=== PATIENT | male | born 1985 | race Hispanic/Latino ===

== ENCOUNTER 2018-10-21 18:02 | Emergency (ER) | payer OTHER ==
[2018-10-21] MEDS ORDERED: LIDOCAINE HCL 1% 20 ML VIAL ONE (18:41)
== END 2018-10-21 19:11 | disposition home or self-care (01) ==
LOC: EDH 18:02
DX: S63.284A Dislocation of proximal interphalangeal joint of right ring finger, initial encounter (principal); W18.39XA Other fall on same level, initial encounter; Y93.89 Activity, other specified; Y92.098 Other place in other non-institutional residence as the place of occurrence of the external cause; Y99.8 Other external cause status
CPT/HCPCS: 26770; 73130

== ENCOUNTER 2019-04-09 22:16 | Emergency (ER) | payer OTHER ==
[2019-04-09] MEDS ORDERED: IBUPROFEN 400 MG TABLET ONE (23:04)
[2019-04-09] MEDS ORDERED: SILVER SULFADIAZINE CREAM 50 GM TP ONE (23:04)
== END 2019-04-09 23:50 | disposition home or self-care (01) ==
LOC: EDH 22:16
DX: S90.32XA Contusion of left foot, initial encounter (principal); S90.212A Contusion of left great toe with damage to nail, initial encounter; S50.812A Abrasion of left forearm, initial encounter; S50.811A Abrasion of right forearm, initial encounter; V87.8XXA Person injured in other specified noncollision transport accidents involving motor vehicle (traffic), initial encounter; Y93.89 Activity, other specified; Y92.410 Unspecified street and highway as the place of occurrence of the external cause; Y99.8 Other external cause status
CPT/HCPCS: 73630

== ENCOUNTER 2019-09-13 21:11 | Emergency (ER) | payer SELFPAY | END 2019-09-13 21:49 | disposition home or self-care (01) | LOC: EDH 21:11 | DX: J06.9 Acute upper respiratory infection, unspecified (principal) | CPT/HCPCS: 99281 ==

== ENCOUNTER 2021-07-06 21:01 | Emergency (ER) | payer OTHER ==
[~2021-07-06] VITALS: Ht 162.6 cm; Wt 90.7 kg
[2021-07-06 21:04] VITALS: BP 122/78
[2021-07-06] MEDS ORDERED: BUDE180H IH (22:15)
[2021-07-06] MEDS ORDERED: ALBUHFA IH (22:15)
[2021-07-06 22:37] VITALS: BP 132/73
== END 2021-07-06 22:36 | disposition home or self-care (01) ==
LOC: EDH 21:01
DX: U07.1 COVID-19 (principal); B34.9 Viral infection, unspecified; Z79.899 Other long term (current) drug therapy
CPT/HCPCS: 71045; 87635; 99284; C9803

== ENCOUNTER 2025-09-28 17:10 | Emergency (ER) | payer BC, OTHER ==
[~2025-09-28] VITALS: Ht 160 cm; Wt 106.6 kg
[~2025-09-28 17:10] MED LIST: ALBUHFA IH; BUDE180H IH
--- NOTE | 2025-09-28 18:15 | HMCIMG ---
EXAM: CR right foot, 3 View. CLINICAL HISTORY: trauma COMPARISON: None provided. FINDINGS: BONES: No acute fracture or aggressive appearing osseous lesion. JOINTS: The joint spaces appear within normal limits. No dislocation. SOFT TISSUES: The soft tissues are unremarkable. IMPRESSION: 1. No acute findings. /Andrew
[2025-09-28] MEDS ORDERED: CEPH500T PO (18:35)
--- NOTE | 2025-09-28 18:37 | ERN ---
ED Note History of Present Illness Stated Complaint: TOE INJURY Chief Complaint: Toe Pain/Injury Time Seen by MD: 17:14 Time Seen by Midlevel: 17:16 Dictation: 40 y/o male with no past medical history coming in after chain saw accident while he was cutting wood. Laceration to the left 4th toe. Patient states he is up-to-date with his tetanus, received a when he was in senior care two years ago. Allergies: Coded Allergies: No Known Drug Allergies (Unverified Allergy, Unknown, 07/06/21) Home Meds Active Scripts Budesonide (Pulmicort Inhaler) 180 Mcg/Puff Puff, 180 MCG IH BID, #1 INH Prov:SIDDHARTHA WONG 07/06/21 Albuterol Sulfate (Ventolin Hfa/Proventil Hfa/Proair Hfa) 90 Mcg/Puff Puff, 2 PUFF IH Q4H, #1 INH Prov:SIDDHARTHA WONG 07/06/21 Past Medical History Past Medical History: No Pertinent History Surgical History: None Surgical History Other: ABD SX Review of System Dictation Constitutional: Negative for fever,chills, and weight loss Eyes: Negative for injury, pain,redness, and discharge ENT: Negative for injury,pain or swelling Cardiovascular: Negative for chest pain, palpitations, and edema Respiratory: Negative for shortness of breath, cough, and wheezing, Abdomen/GI: Negative for abdominal pain, nausea, vomiting, diarrhea, and constipation Back: Negative for injury and pain : Negative for injury, bleeding and discharge MS/Extremity: Negative for injury and deformity, injury to the left 4th toe Skin: Negative for rash, and discoloration Neuro: Negative for headache, weakness, numbness, tingling, and seizure Psych: Negative for suicide ideation, homicidal ideation, and hallucinations Review of Systems: was completed Initial Vital Sign VS Vital Signs Date Time Temp Pulse Resp B/P (MAP) Pulse Ox O2 Delivery O2 Flow Rate FiO2 09/28/25 17:11 98.1 68 20 133/74 99 Room Air 0 Physical Exam Dictation General: awake, alert, NAD Head/Face: Normocephalic, atraumatic Eyes: PERRL, EOMI, vision at baseline ENT: oral cavity clear, TMs clear, no signs of infection Neck: Trachea midline, supple, no nuchal rigidity Cardiovascular: RRR, normal S1/S2, No MRGs, no JVD Respiratory: CTAB, no respiratory distress, No rales or wheezes Abdomen: Soft, non-tender, non-distended, normal bowel sounds, no guarding or rebound. Skin: Warm, dry, normal turgor, no rash is an irregular laceration noted to the dorsal aspect of the 4th toe, minimal bleeding. Toe is resting and extension compared to adjacent digits. Patient can flex. Sensations intact. No visible tendon in his on exploration. Sensation and cap refill intact. No foreign body or fracture of the x-ray. Wound irrigated and repaired. MS/Extremity: Pulses equal, no cyanosis, neurovascular intact, FROM Neuro: COAx4, GCS 15, strength 5/5, CN 2-12 intact, normal cerebellar exam, normal gait, Psych: Normal behavior, mood, and affect normal Results (Laboratory/Radiology) X-RAY Comment: [address] [address] IMAGING REPORT Signed PATIENT: VINAY JACKSON MR#: [id number] : 1985 SEX: M AGE: 40 LOCATION: [facility] ORDER 15 STATUS: REG ER REPORT#: [id number] SERVICE 14 REASON: trauma ORDERING PHYSICIAN: ALMA LUCAS CNP PROCEDURE: FT 3VW LT - FOOT COMP 3+VWS LT EXAM: CR right foot, 3 View. CLINICAL HISTORY: trauma COMPARISON: None provided. FINDINGS: BONES: No acute fracture or aggressive appearing osseous lesion. JOINTS: The joint spaces appear within normal limits. No dislocation. SOFT TISSUES: The soft tissues are unremarkable. IMPRESSION: 1. No acute findings. /Oden DICTATED BY: ANNY DANIELS MD DATE: 09/28/251913 ELECTRONICALLY SIGNED BY: ANNY DANIELS MD ED Course ED Course Orders Procedure Category Date Status Time Foot Comp 3+Vws Lt RAD 09/28/25 Resulted 17:15 Lidocaine Hcl 1% 20ml PHA 09/28/25 Logged Vial (Lidocaine Hc 17:51 Dermabond (Dermabond) PHA 09/28/25 Logged 18:30 Current Medications Medications (Trade) Dose Ordered Sig/Morris Route PRN Reason Start Time Stop Time Status Last Admin Dose Admin Lidocaine HCl (Lidocaine HCl 1% 20ml Vial) ONCE STAT INJ 09/28/25 17:51 09/28/25 17:52 UNV Octyl Cyanoacrylate (Dermabond) 1 each ONCE TP 09/28/25 18:30 10/28/25 18:29 UNV Vital Signs Date Time Temp Pulse Resp B/P (MAP) Pulse Ox O2 Delivery O2 Flow Rate FiO2 09/28/25 17:11 98.1 68 20 133/74 99 Room Air 0 Medical Decision Making MDM MDM: 40 y/o male with no past medical history coming in after chain saw accident while he was cutting wood. Laceration to the left 4th toe. Patient states he is up-to-date with his tetanus, received a when he was in senior care two years ago. See procedure note for wound repair. Discussed with the patient that he needs to return in 7-10 days to remove the sutures. Follow up with the orthopedic surgery outpatient and return to the hospital if any signs of infection. Differential diagnosis: Tendon involvement, fracture, foreign body Rationale: Tests considered and ordered secondary to shared decision making in clude: Previous outside records reviewed: Old ER visits. Risk of complication and/or morbidity or mortality of patient management: None Medications-Per medication reconciliation Need for hospitalization: Patient does not meet criteria for hospitalization. Need for emergency major/minor surgery: No There are no social concerns with this patient. Prescription drug management Prescriptions will include symptomatic care Patient's prior external medical records from other ER visits were reviewed by me as indicated. Prior testing and results from previous visits were reviewed. Prior tests were taken into account with medical decision making and resource utilization, independent historian/historians were used to obtain complete medical history. I independently interpreted the test that were performed, results were reviewed by me and considered findings on radiology if ordered. Medical management and examination interpretation discussions were had by me with other qualified healthcare professionals as indicated for the patient's care. Procedure Wound Location: lower extremity (Fourth toe) Wound Length (cm): 5 Wound's Depth, Shape: superficial, irregular, flap, contused tissue Wound Explored: no foreign body removed Irrigated w/ Saline (ccs): 20 Betadine Prep?: Yes Anesthesia: 1% Lidocaine Volume Anesthetic (ccs): 4 Wound Debrided: moderate Wound Repaired With: sutures Suture Size/Type: 3:0 Number of Sutures: 6 DX & DISP Disposition: Discharge Departure Impression: Primary Impression: Laceration Condition: Stable Scripts Cephalexin (Cephalexin) 500 Mg Tablet 1 TAB PO BID for 7 Days, #30 TAB 0 Refills Prov: ALMA LUCAS CNP 09/28/25 Additional Instructions: Take Antibiotics as prescribed. Keep the area clean and dry. Use soap and water to wash the area. Return to the emergency room in 7-10 days to remove the sutures. If you notice any signs of infection please return back to the emergency room. Referrals: SELF,REFERRAL (PCP) Time of Disposition: 18:34 I have reviewed the case, and I agree with, Diagnosis and Plan ALMA LUCAS CNP Sep 28, 2025 18:36
[2025-09-28 18:42] VITALS: BP 138/76; PULSE 78; RESP 20; TEMP 98; O2SAT 97
[2025-09-28] MEDS: OCTYL 2-CYANOACRYLATE 1 EACH TP SCH (18:57)
[2025-09-28] MEDS: LIDOCAINE HCL 1% 20 ML VIAL INJ SCH (18:57)
== END 2025-09-28 18:57 | disposition home or self-care (01) ==
LOC: EDH 17:10
DX: S91.115A Laceration without foreign body of left lesser toe(s) without damage to nail, initial encounter (principal); Z79.51 Long term (current) use of inhaled steroids; W29.3XXA Contact with powered garden and outdoor hand tools and machinery, initial encounter; Y93.89 Activity, other specified; Y92.89 Other specified places as the place of occurrence of the external cause; Y99.8 Other external cause status
CPT/HCPCS: 12002; 73630; 99283

== ENCOUNTER 2025-10-06 20:26 | Emergency (ER) | payer BC ==
[~2025-10-06] VITALS: Ht 162.6 cm; Wt 109.3 kg
[~2025-10-06 20:26] MED LIST changes: +CEPH500T PO
[2025-10-06 21:19] LABS: IMMATURE GRANULOCYTE ABSOLUTE 0.12 K/uL (0-1); NUCLEATED RED BLOOD CELLS 0.0 % (0.0-0.19); PLATELET COUNT (AUTO) 195 K/uL (130-400); RED BLOOD CELL COUNT(AUTO) 5.11 MIL/uL (4.50-6.20); RED CELL DISTRIBUTION WIDTH 13.2 % (11.0-15.5); WHITE BLOOD COUNT (AUTO) 8.4 K/uL (4.8-10.8)
[2025-10-06 21:30] LABS: CREATININE 1.0 mg/dL (0.5-1.3); GLOMERULAR FILTR. RATE CALC 97.0 mL/min (>90); GLUCOSE,RANDOM 102.0 mg/dL (70-105); SODIUM SERUM 136.0 mmol/L (136-145); UREA NITROGEN, BLOOD 20.0 mg/dL (7-18)
--- NOTE | 2025-10-06 21:50 | HMCIMG ---
EXAM: CR Toes, left,2 View. CLINICAL HISTORY: LEFT 3RD TOE SUTURES IN PLACE 09/28/25. APPEARS INFECTED. REINJURY COMPARISON: None provided. FINDINGS: Marked third toe soft tissue swelling. Subtle periostitis at the lateral aspect of the middle phalanx may reflect osteomyelitis. Recommend contrast-enhanced MRI of the midfoot/forefoot for further evaluation. IMPRESSION: 1. Marked soft tissue swelling of the third toe with possible osteomyelitis of the middle phalanx. 2. Recommend contrast-enhanced MRI of the midfoot/forefoot for further evaluation. /Constable
--- NOTE | 2025-10-06 22:29 | ERN ---
ED Note History of Present Illness Stated Complaint: SUTURE REMOVAL, LEFT 3RD TOE APPEARS INFECTED Chief Complaint: Multiple Complaints Time Seen by MD: 20:29 Time Seen by Midlevel: 20:29 Dictation: The patient is a 40-year-old male with history of abdominal surgery who presents to the emergency department for evaluation of left 3rd toe. Patient reports that on September 28 2025 he accidentally cut his toe with a saw. Patient was seen at this hospital and had six sutures applied and was giving Keflex. Patient went to the urgent care today to have sutures removed but they told him to come to the ER for further evaluation because toe looked infected. Patient otherwise denies any fevers. Reports he has been getting clear discharge but denies any purulent discharge Allergies: Coded Allergies: No Known Drug Allergies (Unverified Allergy, Unknown, 07/06/21) Home Meds Active Scripts Cephalexin Monohydrate (Keflex) 500 Mg Cap, 2 CAP PO TID for 14 Days, #84 CAP 0 Refills Prov:CLAUDIA DIAZ REFRIGERATION TECHNICIAN 10/06/25 Ciprofloxacin HCl (Cipro) 500 Mg Tablet, 1 TAB PO BID for 14 Days, #28 TAB 0 Refills Prov:CLAUDIA DIAZ REFRIGERATION TECHNICIAN 10/06/25 Cephalexin (Cephalexin) 500 Mg Tablet, 1 TAB PO BID for 7 Days, #30 TAB 0 Refills Prov:ALMA LUCAS CANOE MAKER 09/28/25 Budesonide (Pulmicort Inhaler) 180 Mcg/Puff Puff, 180 MCG IH BID, #1 INH Prov:SIDDHARTHA WONG PA 07/06/21 Albuterol Sulfate (Ventolin Hfa/Proventil Hfa/Proair Hfa) 90 Mcg/Puff Puff, 2 PUFF IH Q4H, #1 INH Prov:SIDDHARTHA WONG PA 07/06/21 Past Medical History Past Medical History: No Pertinent History Surgical History: Other Surgical History Other: ALISON MCKEON RN Note Reviewed/Agreed w/PFSH: Yes Review of System Dictation Constitutional: Negative for fever,chills, and weight loss Eyes: Negative for injury, pain,redness, and discharge ENT: Negative for injury,pain or swelling Cardiovascular: Negative for chest pain, palpitations, and edema Respiratory: Negative for shortness of breath, cough, and wheezing, Abdomen/GI: Negative for abdominal pain, nausea, vomiting, diarrhea, and constipation Back: Negative for injury and pain : Negative for injury, bleeding and discharge MS/Extremity: Negative for injury and deformity Skin: Negative for rash, and discoloration positive for redness to left 3rd toe Neuro: Negative for headache, weakness, numbness, tingling, and seizure Psych: Negative for suicide ideation, homicidal ideation, and hallucinations Initial Vital Sign VS Vital Signs Date Time Temp Pulse Resp B/P (MAP) Pulse Ox O2 Delivery O2 Flow Rate FiO2 10/06/25 20:28 98.4 65 16 147/86 98 Room Air 10/06/25 21:38 0 21 Physical Exam Dictation Vital Signs reviewed General Appearance: Alert, oriented x 3, no acute distress, well developed, nourished. Head and Face: non-traumatic. Eyes: PERRL, pink conjunctivas, eyelid no trauma, anterior chamber with arcus senilis. Ears: Pinnas intact and no signs of trauma or erythema ear canals clear and no discharge TM no erythema Nose: No discharge, no bleeding. Oropharynx: Mouth normal, tongue pink. pharynx clear,no erythema, tonsils no exudates, no abscesses noted, mucous membrane moist Neck: Supple, non-tender, no thyromegaly, no masses, no JVD, no bruits Breast:Deferred Chest:No tenderness, no crepitus, no paradoxical movement, no retractions Lungs:Clear, well-ventilated, symmetric, no rales, no wheezing, no rhonchi, no stridor, good breath sounds bilaterally Heart: Regular rate, regular rhythm, no murmur, no gallops Vascular: no peripheral edema, Abdomen: Soft, positive bowel sounds, nondistended, no guarding, nontender, no rebound, no masses no hepatomegaly, no splenomegaly, no Rodriguez's sign, no hernias. Rectal: Deferred Genital: Deferred Neurological: Normal speech, motor function intact, sensory function intact Musculoskeletal: Neck nontender, full range of motion, back nontender, full range of motion, Extremities: nontender, full range of motion Skin: Color pink, dry, no turgor, no rash, no lacerations, no abrasions, no contusions. Erythema to left 3rd toe with swelling, serosanguineous drainage, sutures in place Lymphatic: Deferred Results (Laboratory/Radiology) Laboratory/Radiology Laboratory Tests Test 10/06/25 21:03 White Blood Count 8.4 K/uL (4.8-10.8) Red Blood Count 5.11 MIL/uL (4.50-6.20) Hemoglobin 14.6 g/dL (14.0-18.0) Hematocrit 43.5 % (42-54) Mean Corpuscular Volume 85.1 fL (79-99) Mean Corpuscular Hemoglobin 28.6 pg (27.0-33.0) Mean Corpuscular Hemoglobin Concent 33.6 g/dL (32.0-36.0) Red Cell Distribution Width 13.2 % (11.0-15.5) Platelet Count 195 K/uL (130-400) Mean Platelet Volume 10.8 fL (7.5-10.5) H Immature Granulocyte % (Auto) 1.4 % (0-1) H Neutrophils (%) (Auto) 51.5 % (40.0-77.0) Lymphocytes (%) (Auto) 30.5 % (21.0-51.0) Monocytes (%) (Auto) 8.4 % (3.0-13.0) Eosinophils (%) (Auto) 7.4 % (0.0-8.0) Basophils (%) (Auto) 0.8 % (0.0-5.0) Neutrophils # (Auto) 4.3 K/uL (1.8-7.7) Lymphocytes # (Auto) 2.6 K/uL (1.0-4.8) Monocytes # (Auto) 0.7 K/uL (0.1-1.0) Eosinophils # (Auto) 0.62 K/uL (0.00-0.70) Basophils # (Auto) 0.07 K/uL (0.00-0.20) Absolute Immature Granulocyte (auto 0.12 K/uL (0-1) Nucleated Red Blood Cells 0.0 % (0.0-0.19) Erythrocyte Sedimentation Rate 13 MM/HR (0-15) Sodium Level 136 mmol/L (136-145) Potassium Level 4.3 mmol/L (3.5-5.1) Chloride Level 100 mmol/L (101-111) L Carbon Dioxide Level 31 mmol/L (21-32) Blood Urea Nitrogen 20 mg/dL (7-18) H Creatinine 1.0 mg/dL (0.5-1.3) Glomerular Filtration Rate Calc 97 mL/min (>90) Random Glucose 102 mg/dL (70-105) Total Calcium 9.0 mg/dL (8.5-10.1) Labs Reviewed?: Yes ED Course ED Course Orders Procedure Category Date Status Time Cbc With Differential LAB 10/06/25 Complete 20:32 Basic Metabolic Panel LAB 10/06/25 Complete 20:32 Toe(S) 2+Vws Lt RAD 10/06/25 Resulted 20:32 Erythrocyte Sed Rate LAB 10/06/25 Complete 20:34 Ketorolac 60mg/2ml PHA 10/06/25 Complete (Toradol 60mg/2ml) 23:00 Current Medications Medications (Trade) Dose Ordered Sig/Morris Route PRN Reason Start Time Stop Time Status Last Admin Dose Admin Ketorolac Tromethamine (toRADol 60MG/ 2ML) 60 mg ONCE ONCE IM 10/06/25 23:00 10/06/25 23:01 DC 10/06/25 22:52 Vital Signs Date Time Temp Pulse Resp B/P (MAP) Pulse Ox O2 Delivery O2 Flow Rate FiO2 10/06/25 23:13 98.2 70 18 142/81 99 Room Air* 0 21 10/06/25 21:38 97.0 68 18 144/79 98 Room Air* 0 21 10/06/25 20:28 98.4 65 16 147/86 98 Room Air Medical Decision Making MDM The patient is a 40-year-old male with history of abdominal surgery who presents to the emergency department for evaluation of left 3rd toe. Patient reports that on September 28 2025 he accidentally cut his toe with a saw. Patient was seen at this hospital and had six sutures applied and was giving Keflex. Patient went to the urgent care today to have sutures removed but they told him to come to the ER for further evaluation because toe looked infected. Patient otherwise denies any fevers. Reports he has been getting clear discharge but denies any purulent discharge CBC showed no leukocytosis, no anemia, chemistry showed no electrolyte imbalance, sed rate was normal. Chest x-ray showed marked soft tissue swelling of the 3rd toe with a possible osteomyelitis of the middle phalanx. We will s tart patient on Cipro to be added to Keflex and we will refer patient for podiatry. Sutures were successfully removed. Differential diagnosis: Cellulitis, osteomyelitis, toe fracture Need for hospitalization: Patient does not meet criteria for hospitalization. There are no social concerns with this patient. DX & DISP Disposition: Discharge Departure Impression: Primary Impression: Cellulitis of third toe, left Additional Impression: Encounter for removal of sutures Condition: Stable Scripts Cephalexin Monohydrate (Keflex) 500 Mg Cap 2 CAP PO TID for 14 Days, #84 CAP 0 Refills Prov: BROOKLYN DIAZTONE PARK 10/06/25 Ciprofloxacin HCl (Cipro) 500 Mg Tablet 1 TAB PO BID for 14 Days, #28 TAB 0 Refills Prov: BROOK[place]N DIAZTONE PARK 10/06/25 Additional Instructions: Your labs were unremarkable. You have an infection in your toe we have adjusted your antibiotics. You need to follow up with a health education coordinator. You need to call and make an appointment. It is very important that you follow up with the doctor and take your medications to avoid any further complication. If anything worsens please return to ER. FOLLOW-UP WITH PRIMARY CARE PROVIDER IN 1 TO 2 DAYS. TAKE MEDICATIONS DIRECTED HERE IN THE EMERGENCY ROOM. OKAY TO CONTINUE HOME MEDICATIONS UNLESS OTHERWISE DISCUSSED DURING YOUR VISIT IN THE EMERGENCY ROOM TODAY. RETURN TO YOUR NEAREST EMERGENCY ROOM IF SYMPTOMS WORSEN OR IF THERE IS NO IMPROVEMENT. CALL 911 IF YOU NEED IMMEDIATE ASSISTANCE. TAKE TYLENOL [id number] NEEDED AND IF NO CONTRAINDICATIONS ARE PRESENT. INCREASE ORAL HYDRATION. A WOUND CULTURE OR URINE CULTURE WAS ORDERED HERE IN THE EMERGENCY ROOM DEPARTMENT PLEASE FOLLOW-UP WITH PRIMARY CARE PROVIDER AND ADVISE THEM TO GET REPEAT PORTS FROM OUR FACILITY. IF YOU HAD ANY DAE WRAP/SPLINTS THAT WERE APPLIED HERE, PLEASE DO NOT REMOVE THEM UNTIL YOU SEE YOUR PRIMARY CARE OR SPECIALTY. Referrals: SHANE ESCOBAR DPM Time of Disposition: 22:54 I have examined patient, & reviewed all documents, & agreed W/ the Diagnosis, and Plan DIAZ,CLAUDIA PARK Oct 06, 2025 22:29
[2025-10-06] MEDS ORDERED: CIPR-278 PO (23:04)
[2025-10-06] MEDS ORDERED: CEPH500B PO (23:04)
[2025-10-06 23:13] VITALS: BP 142/81; PULSE 70; RESP 18; TEMP 98.3; O2SAT 99
== END 2025-10-06 23:14 | disposition home or self-care (01) ==
LOC: EDH 20:26
DX: S91.115D Laceration without foreign body of left lesser toe(s) without damage to nail, subsequent encounter (principal); L03.032 Cellulitis of left toe; Z48.02 Encounter for removal of sutures; Z79.51 Long term (current) use of inhaled steroids; X58.XXXD Exposure to other specified factors, subsequent encounter
CPT/HCPCS: 99284; 80048; 85025; 85651; 36415; 73660; 96372; J1885